=== PATIENT | female | born 1980 | race Hispanic/Latino ===

== ENCOUNTER 2019-04-30 16:09 | Outpatient (CLI) | payer MEDICAID ==
[2019-04-30 17:14] LABS: Bilirubin,Urine NEG (Negative); Blood,Urine NEG (Negative); Color,Urine Yellow (Yellow); Mucus,Urine FEW /HPF; Protein,Urine <15 mg/dL mg/dL (Negative); Urobilinogen,Urine < 2.0 mg/dL (<2.0)
[2019-04-30 17:20] VITALS: BP 125/74
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
== END 2019-04-30 19:09 | disposition home or self-care (01) ==
LOC: TRG 16:09
PROVIDERS: ATTEND Obstetrics & Gynecology
DX: O47.02 False labor before 37 completed weeks of gestation, second trimester (principal); Z3A.27 27 weeks gestation of pregnancy
CPT/HCPCS: 59025; 76815; 76819; 81001

== ENCOUNTER 2019-07-21 12:32 | Inpatient (IN) | payer MEDICAID ==
[2019-07-21 13:23] LABS: Hematocrit 38.4 % (30.3-42.9); Hemoglobin 13.1 gm/dl (10.1-14.3); Mean Corpuscular HGB Conc 34 % (30-34); Mean Corpuscular Volume 86 fl (79-97); Platelet Count 303 K/mm3 (140-440); Red Blood Count 4.45 M/mm3 (3.65-5.03); Red Cell Distribution Width 14.1 % (13.2-15.2)
[2019-07-21 14:01] LABS: Bacteria,Urine 1+ /HPF (Negative); Bilirubin,Urine NEG (Negative); Blood,Urine NEG (Negative); Color,Urine Yellow (Yellow); Mucus,Urine FEW /HPF; Urobilinogen,Urine < 2.0 mg/dL (<2.0)
[2019-07-21 14:03] LABS: Alanine Aminotransferase 8 units/L (7-56); Uric Acid 7.5 mg/dL (3.5-7.6)
[2019-07-21] MEDS ORDERED: REGLAN IV ONE ×2 (14:47→14:53)
[2019-07-21] MEDS ORDERED: PEPCID IV ONE ×2 (14:47→14:53)
--- NOTE | 2019-07-21 14:50 | Ultrasound Report ---
ULTRASOUND BIOPHYSICAL PROFILE ULTRASOUND OB LIMITED INDICATION: IVANA, BPP, well-being TECHNIQUE: Transabdominal ultrasound imaging. COMPARISON: None FINDINGS: breathing movement = 2 Gross body movement = 2 tone = 2 Qualitative amniotic fluid volume = 2 Total biophysical score = 8/8 Amniotic fluid index is 12.4 cm. Presentation is cephalic. heart rate is 139 beats per minute. IMPRESSION: biophysical profile equals 8/8. Signer Name: Ortiz Flores Jr, MD Signed: 07/21/2019 2:45 PM Workstation Name: [id number]
[2019-07-21] MEDS ORDERED: BICITRA PO ONE (14:53)
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
[2019-07-21] MEDS ORDERED: PITOCin/NS 20 UNIT/1000ML DRIP 20 UNITS/1,000 ML BAG IV SCH ×3 (15:00→21:39)
[2019-07-21] MEDS ORDERED: ANCEF/STERILE WATER 2 GM/20 ML 2 GM/20 ML SYRINGE IV NR (15:00)
[2019-07-21] MEDS ORDERED: ceFAZolin 3 GM in NACL 0.9% 100 ML IV NR (15:00)
[2019-07-21] MEDS ORDERED: LACTATED RINGERS 1,000 ML IV SCH ×2 (15:00)
--- NOTE | 2019-07-21 15:17 | Anesthesia Consultation ---
Anesthesia Consult and Med Hx Date of service: 07/21/19 - Airway Anesthetic Teeth Evaluation: Chipped ROM Head & Neck: Adequate Mental/Hyoid Distance: Adequate Mallampati Class: Class II Intubation Access Assessment: Probably Good - Pulmonary Exam CTA: Yes - Cardiac Exam Cardiac Exam: RRR - Pre-Operative Health Status ASA Pre-Surgery Classification: ASA3 Proposed Anesthetic Plan: Spinal - Pulmonary Hx Smoking: No (Quit 11/2018) Hx Asthma: No - Cardiovascular System Hx Hypertension: Yes - Central Nervous System Hx Seizures: No Hx Psychiatric Problems: No - Endocrine Hx Renal Disease: No Hx Hypothyroidism: No Hx Hyperthyroidism: No - Hematic Hx Anemia: No Hx Sickle Cell Disease: No - Other Systems Hx Alcohol Use: No Hx Obesity: Yes
--- NOTE | 2019-07-21 15:17 | Anesthesia Day of Surgery ---
Anesthesia Day of Surgery - Day of Surgery Patient Examined: Yes Patient H&P Reviewed: Yes Patient is NPO: Yes
[2019-07-21] MEDS ORDERED: BICITRA PO SCH (15:47)
[2019-07-21 16:52] LABS: Hematocrit 36.2 % (30.3-42.9); Mean Corpuscular HGB Conc 33 % (30-34); Mean Corpuscular Volume 88 fl (79-97); Red Cell Distribution Width 14.5 % (13.2-15.2)
[2019-07-21 16:56] LABS: Platelet Count 280 K/mm3 (140-440)
[2019-07-21] MEDS ORDERED: ANCEF/STERILE WATER 2 GM/20 ML IV ONE (17:05)
[2019-07-21] MEDS ORDERED: NACL 0.9% 500 ML 500 ML ONE (17:45)
[2019-07-21] MEDS ORDERED: MARCAINE 0.5% INFILTRATI ONE (17:45)
[2019-07-21] MEDS ORDERED: LEVOPHED IV ONE (17:45)
[2019-07-21] MEDS ORDERED: ZOFRAN ONE (17:45)
[2019-07-21] MEDS ORDERED: DEXMEDETOMIDINE IV ONE (17:45)
--- NOTE | 2019-07-21 18:25 | Procedure Note ---
OB Delivery Note - Delivery Date of Delivery: 07/21/19 Surgeon: EVERARDO CLINTON Estimated blood loss: other (500 mL) - Section Preop diagnosis: repeat Postop diagnosis: same section procedure: section, repeat low transverse Disposition: PACU Complications: none Narrative: Please see operative report. - A at 1 minute: 8 at 5 minutes: 9 Infant Gender: Male (3461g (7lb 10 oz) @ 1747 pm)
--- NOTE | 2019-07-21 18:26 | Operative Report ---
Operative Report Operative Report: Date of procedure: July 21, 2019 Preoperative diagnosis: 1) IUP at 38w6d 2)Gestational HTN 3) Morbid Obesity 4) Previous x 1 5) Advanced Maternal Age Postoperative diagnosis: Same Procedure: Repeat low transverse section Surgeon: Veena Adair MD Anesthesia: Regional Findings: 1) Viable male , Apgars 8 and 9, weight 3461 g, (7 lb 10 oz) in cephalic presentation. Meconium stained amniotic fluid 2) Normal-appearing uterus ovaries and tubes Estimated blood loss: 500 mL IV fluids:1000 mL Urine output: 100 mL, clear at the end of the procedure Drains: Perez to gravity Specimens: Placenta to pathology Complications: None.Counts correct x 3 Disposition: Stable to PACU Indication for procedure: Pt is a 39 year old at 38w6d who presents with elevated blood pressures 140-150/90s and a h/o prior . She was scheduled for repeat section tomorrow. Operation in detail: After the risks, benefits, alternatives and complications were explained to the patient she gave informed consent for the procedure. She was subsequently taken to the operating room where regional anesthesia was noted to be adequate. She was subsequently placed in the dorsal supine position with leftward tilt and prepped and draped in a normal sterile fashion. heart tones were noted prior to incision. A timeout was performed. A Pfannenstiel skin incision was made with the knife and carried down to the layer of the fascia with the Bovie. The fascia was incised in the midline and the fascial incision was extended bilaterally with the Mart scissors. The fascial incision was then stretched. The rectus muscles were then in the midline. The peritoneum was then entered bluntly. The peritoneal incision was extended with good visualization of the bladder. The peritoneal incision was then stretched. An Jatin retractor was then placed. The bladder blade was placed. The vesicouterine peritoneum was grasped with smooth pickups and incised with Metzenbaum scissors. Metzenbaum scissors were used to extend the incision bilaterally. The bladder flap was then created digitally and the bladder blade was replaced. A transverse incision was made in the lower uterine segment with a knife and extended bilaterally with the bandage scissors. Amniotomy was performed with Allis clamp with egress of meconium stained amniotic fluid. The head was delivered without difficulty followed by shoulders and body. was bulb suctioned at delivery. The cord was clamped and cut and the was handed to NICU staff in attendance. Cord blood was collected. The placenta was then delivered manually. The uterus was then exteriorized and cleared of all clots and debris. The hysterotomy was then reapproximated with 0 Vicryl in a running locked fashion. A second layer of the same suture was used in imbricating fashion. The hys terotomy was inspected and hemostasis was noted. The gutters were irrigated and cleared of all clots and debris. The hysterotomy was again inspected and noted to be hemostatic. Tissel was placed over the hysterotomy. Interceed was placed on the anterior surface of the uterus. The peritoneum was reapproximated with 2-0 Vicryl in a running fashion. The fascia was reapproximated with 0 PDS in a running fashion. The subcutaneous tissue was reapproximated with 2-0 Vicryl in a running fashion. The skin was reapproximated with jeimy. The incision was then covered with a pressure dressing. The procedure was then ended. The patient tolerated the procedure well and was taken to the PACU in stable condition. All instrument, lap, and needle counts were correct 3.
[2019-07-21] MEDS ORDERED: NALOXONE IV PRN ×2 (18:35→21:39)
[2019-07-21] MEDS ORDERED: PHENERGAN PR PRN (18:35)
[2019-07-21] MEDS ORDERED: ZOFRAN IV PRN ×2 (18:35→21:39)
[2019-07-21] MEDS ORDERED: PHENERGAN PO PRN (18:35)
--- NOTE | 2019-07-21 18:35 | Post Anesthesia Evaluation ---
- Post Anesthesia Evaluation Patient Participated: Yes Airway Patent: Yes Stable Respiratory Function: Yes Nausea/Vomiting: No Temp > 96.8F: Yes Pain Manageable: Yes Adequeate Hydration: Yes Anesthesia Complications: No Block Receding Appropriately: Yes
[2019-07-21] MEDS ORDERED: NalbUPHINE IV PRN (18:36)
[2019-07-21] MEDS ORDERED: IBUPROFEN PO SCH (19:00)
[2019-07-21] MEDS ORDERED: TYLENOL PO SCH (19:00)
[2019-07-21] MEDS: MORPHINE IV PRN (19:49)
[2019-07-21] MEDS ORDERED: SODIUM CHLORIDE FLUSH SYRINGE 10 ML IV NR (21:39)
[2019-07-21] MEDS ORDERED: TUCKS PAD TP PRN (21:39)
[2019-07-21] MEDS ORDERED: LANSINOH TP PRN (21:39)
[2019-07-21] MEDS ORDERED: MORPHINE IV PRN (21:39)
[2019-07-21] MEDS ORDERED: MILK OF MAGNESIA PO PRN (21:39)
[2019-07-21] MEDS ORDERED: MYLICON PO PRN (21:39)
[2019-07-21] MEDS: TORADOL IV SCH (22:40)
[2019-07-22] MEDS: MORPHINE IV PRN ×3 (02:11→13:28)
[2019-07-22] MEDS ORDERED: TYLENOL PO SCH (04:00)
[2019-07-22] MEDS: TYLENOL PO SCH ×4 (04:31→22:43)
[2019-07-22] MEDS ORDERED: D5LR 1,000 ML IV SCH (05:00)
[2019-07-22] MEDS: TORADOL IV SCH ×3 (05:13→17:11)
[2019-07-22] MEDS ORDERED: M-M-R II VACCINE SUB-Q ONE (06:00)
[2019-07-22] MEDS ORDERED: BOOSTRIX IM ONE (06:00)
--- NOTE | 2019-07-22 08:49 | Progress Note ---
Assessment and Plan A/P POD1 s/p reepat csec routine PP orders Urine yeast _ added diflucan Subjective - Subjective Date of service: 07/22/19 Principal diagnosis: s/p repeat csec. gestational HTN Patient reports: appetite normal, voiding normally, pain well controlled, flatus, ambulating normally Gregory: doing well Objective - Vital Signs Latest vital signs: Vital Signs Temp Pulse Resp BP BP Pulse Ox 07/22/19 06:08 98.2 F 86 20 123/67 96 07/22/19 04:31 18 07/22/19 01:58 98.0 F 94 H 20 131/76 93 07/21/19 20:00 20 95/44 97 07/21/19 19:49 15 07/21/19 19:30 97.9 F 85 18 91/50 97 07/21/19 19:15 84 17 87/39 96 07/21/19 19:00 82 23 100/44 96 07/21/19 18:45 85 16 82/35 97 07/21/19 18:40 82 18 91/37 97 07/21/19 18:35 82 18 90/42 97 07/21/19 18:30 97.4 F L 78 18 92/42 97 07/21/19 16:45 98 H 148/66 07/21/19 16:15 103 H 146/69 07/21/19 16:00 90 147/71 07/21/19 15:45 103 H 152/72 07/21/19 15:30 91 H 140/75 07/21/19 14:14 100 H 143/81 07/21/19 13:57 93 H 158/91 07/21/19 13:42 96 H 157/78 07/21/19 13:27 95 H 155/79 07/21/19 12:57 109 H 146/77 07/21/19 12:54 98.0 F 109 H 18 146/77 07/21/19 12:51 100 H 179/92 Intake and Output 07/21/19 07/22/19 07/22/19 23:59 07:59 15:59 Intake Total 1600 240 Output Total 150 600 Balance 1450 -360 Intake: IV 1600 Oral 240 Output: Urine 150 600 Indwelling Catheter 600 Other: Total, Intake Amount 240 Total, Output Amount 600 Estimated Blood Loss 500 - Exam Breasts: Present: normal Cardiovascular: Present: Regular rate, Normal S1 Lungs: Present: Clear to auscultation, Normal air movement Abdomen: Present: normal appearance, soft, normal bowel sounds. Absent: distention, tenderness, guarding Vulva: both: normal Uterus: Present: normal, firm Extremities: Present: normal Deep Tendon Reflex Grade: Normal +2 Incision: Present: normal, dry, intact - Labs Labs: Abnormal lab results 07/21/19 07/21/19 07/21/19 Range/Units 13:14 13:15 13:15 WBC 11.3 H (4.5-11.0) K/mm3 Creatinine 0.5 L (0.7-1.2) mg/dL U Epithel Cells (Auto) 21.0 H (0-13.0) /HPF 07/21/19 Range/Units 16:37 WBC 12.5 H (4.5-11.0) K/mm3 Creatinine (0.7-1.2) mg/dL U Epithel Cells (Auto) (0-13.0) /HPF
[2019-07-22 08:54] LABS: Hematocrit 33.3 % (30.3-42.9); Hemoglobin 11.2 gm/dl (10.1-14.3)
[2019-07-22] MEDS: ANCEF/NS 1 GM/50 ML 1 GM/50 ML BAG IV SCH ×2 (08:59)
[2019-07-22] MEDS ORDERED: DIFLUCAN PO NR (09:30)
[2019-07-22 09:31] LABS: Basophils % (Auto) 0.4 % (0.0-1.8); Eosinophils # (Auto) 0.1 K/mm3 (0.0-0.4); Eosinophils % (Auto) 0.7 % (0.0-4.3); Hematocrit 33.7 % (30.3-42.9); Hemoglobin 11.2 gm/dl (10.1-14.3); Lymphocytes # (Auto) 1.7 K/mm3 (1.2-5.4); Lymphocytes % (Auto) 17.5 % (13.4-35.0); Mean Corpuscular HGB Conc 33 % (30-34); Mean Corpuscular Volume 89 fl (79-97); Monocytes # (Auto) 0.5 K/mm3 (0.0-0.8); Monocytes % (Auto) 5.6 % (0.0-7.3); Platelet Count 245 K/mm3 (140-440); Red Cell Distribution Width 14.3 % (13.2-15.2)
[2019-07-22] MEDS: PERCOCET 5/325 PO PRN ×2 (17:45→21:55)
[2019-07-23] MEDS: IBUPROFEN PO PRN ×4 (00:11→17:04)
[2019-07-23] MEDS: PERCOCET 5/325 PO PRN ×3 (03:52→22:15)
[2019-07-23] MEDS: TYLENOL PO SCH ×2 (11:09→17:04)
--- NOTE | 2019-07-23 12:08 | Progress Note ---
Assessment and Plan POD2 s/p repeat Gestational HTN All labs normal Needs abdominal binder Anticipate discharge to home tomorrow Subjective - Subjective Date of service: 07/23/19 Principal diagnosis: s/p repeat csec. gestational HTN Interval history: Pt is POD2 s/p repeat and gestational HTN. Patient reports: appetite normal, voiding normally, pain well controlled, flatus, ambulating normally : doing well, bottle feeding Objective - Vital Signs Latest vital signs: Vital Signs Temp Pulse Resp BP BP Pulse Ox 07/23/19 08:12 97.5 F L 87 18 144/74 07/23/19 05:39 20 07/23/19 03:52 20 07/23/19 00:58 98.2 F 91 H 20 144/71 98 07/23/19 00:11 20 07/22/19 21:55 20 07/22/19 17:19 97.9 F 81 22 149/75 98 Intake and Output 07/22/19 07/23/19 07/23/19 23:59 07:59 15:59 Intake Total 240 480 Output Total 800 Balance -560 480 Intake: Oral 240 480 Output: Urine 800 Indwelling Catheter 800 Other: Total, Intake Amount 240 480 Total, Output Amount 800 # Voids Indwelling Catheter 1 - Exam Lungs: Present: Normal air movement Abdomen: Present: normal appearance, tenderness Uterus: Present: normal, firm, fundal height below umbilicus Extremities: Present: normal Incision: Present: dressed
[2019-07-24] MEDS: IBUPROFEN PO PRN (00:03)
[2019-07-24] MEDS: PERCOCET 5/325 PO PRN ×2 (03:48→10:17)
--- NOTE | 2019-07-24 08:26 | Progress Note ---
Assessment and Plan POD3 s/p repeat Gestational HTN All labs normal Discharge to home today Subjective - Subjective Date of service: 07/24/19 Principal diagnosis: s/p repeat csec. gestational HTN Interval history: Pt is POD3 s/p repeat and gestational HTN. Patient reports: appetite normal, voiding normally, pain well controlled, flatus, ambulating normally : doing well, bottle feeding Objective - Vital Signs Latest vital signs: Vital Signs Temp Pulse Resp BP Pulse Ox 07/24/19 03:48 20 07/24/19 02:55 98.1 F 96 H 20 128/63 98 07/24/19 00:03 18 07/23/19 22:15 20 07/23/19 17:41 98.0 F 99 H 18 134/66 Intake and Output 07/23/19 07/24/19 07/24/19 23:59 07:59 15:59 Intake Total 480 240 Balance 480 240 Intake: Oral 480 240 Other: Total, Intake Amount 480 240 - Exam Lungs: Present: Normal air movement Abdomen: Present: normal appearance, soft Uterus: Present: normal, firm, fundal height below umbilicus Extremities: Present: edema Incision: Present: normal, dry, intact
--- NOTE | 2019-07-24 08:29 | Discharge Summary ---
Providers - Providers Date of Admission: 07/21/19 15:32 Date of discharge: 07/24/19 Attending physician: EVERARDO CLINTON Primary care physician: EVERARDO CLINTON Hospitalization Reason for admission: section (for gestational hypertension) Delivery: Procedure: repeat low transverse Incision: normal, dry, intact Other procedures: none complications: none Discharge diagnosis: IUP at term delivered baby: male Hospital course: Pt was admitted for gestational hypertension and progressed to repeat at 38w6d. Her course was uneventful, and she met discharge criteria on POD3. Condition at discharge: Good Disposition: DC-01 TO HOME OR SELFCARE Plan - Discharge Medications Prescriptions: Ibuprofen [Motrin] 800 mg PO Q8HR PRN #60 tablet PRN Reason: Pain, Mild (1-3) oxyCODONE /ACETAMINOPHEN [Percocet 5/325] 1 tab PO Q6HR PRN #30 tablet PRN Reason: Pain - Provider Discharge Summary Activity: routine, no sex for 6 weeks, no heavy lifting 4 weeks, no strenuous exercise Diet: routine Instructions: routine Additional instructions: [] Smoking cessation referral if applicable(refer to patient education folder for contact #) [] Refer to [facility] Booklet Call your doctor immediately for: * Fever > 100.5 * Heavy vaginal bleeding ( >1 pad per hour) * Severe persistent headache * Shortness of breath * Reddened, hot, painful area to leg or breast * Drainage or odor from incision. * Keep incision clean and dry at all times and follow doctor's instructions regarding bathing/showering - Follow up plan Follow up: LEEANN ADAIR MD [Staff Physician] - 7 Days (Please call to schedule appt with Dr. Adair.)
[2019-07-24 14:54] VITALS: BP 130/60
== END 2019-07-24 14:20 | disposition home or self-care (01) | DRG 766 ==
LOC: TRG 12:32 → APU 15:32 → OB 20:59
PROVIDERS: ADMIT Obstetrics & Gynecology; ATTEND Obstetrics & Gynecology
PROC: 10D00Z1 Extraction of Products of Conception, Low, Open Approach (ICD-10-PCS; principal; 2019-07-21)
PROC: 3E0234Z Introduction of Serum, Toxoid and Vaccine into Muscle, Percutaneous Approach (ICD-10-PCS; 2019-07-22)
DX: O34.211 Maternal care for low transverse scar from previous cesarean delivery (principal); O13.4 Gestational [pregnancy-induced] hypertension without significant proteinuria, complicating childbirth; O99.214 Obesity complicating childbirth; E66.01 Morbid (severe) obesity due to excess calories; O77.0 Labor and delivery complicated by meconium in amniotic fluid; Z3A.38 38 weeks gestation of pregnancy; Z37.0 Single live birth; Z71.3 Dietary counseling and surveillance; Z23 Encounter for immunization; Z82.49 Family history of ischemic heart disease and other diseases of the circulatory system
CPT/HCPCS: 36415; 76815; 76819; 81001; 82565; 82962; 83615; 84450; 84460; 84550; 85014; 85018; 85025; 85027; 86592; 86850; 86900; 86901; 88307; 90471; 90715; G0378; J0690; J1885; J2270; J2405; J2590; J2765; J3490; J7040; J7120; J7121

== ENCOUNTER 2020-09-13 08:40 | Inpatient (IN) | payer MEDICAID ==
[2020-09-13] MEDS ORDERED: OXYTOCIN DRIP 30,000 MILLIUNITS/500 ML BAG IV ONE (09:20)
[2020-09-13] MEDS ORDERED: LACTATED RINGERS 1,000 ML ONE (09:20)
[2020-09-13] MEDS ORDERED: METOCLOPRAMIDE 10 MG/2 ML INJ ONE (09:20)
[2020-09-13] MEDS ORDERED: FAMOTIDINE 20 MG/2 ML INJ IV ONE ×2 (09:20→17:43)
[2020-09-13] MEDS ORDERED: BICITRA ORAL LIQD 30ML ONE ×2 (09:20→09:21)
[2020-09-13] MEDS ORDERED: ceFAZolin/Water 2 GM/20 ML 2 GM/20 ML SYRINGE IV ONE (09:21)
[2020-09-13] MEDS ORDERED: TERBUTALINE 1 MG/1 ML INJ ONE (09:23)
--- NOTE | 2020-09-13 09:35 | History and Physical Report ---
History of Present Illness Date of examination: 09/13/20 ("brown fluid coming out of my vagina.") Date of admission: 09/13/2020 Chief complaint: Cxts, limited PNC, @ 39 wks History of present illness: Pt presented to triage with c/o ctxs and brown liquid coming out of her vagina. States that she has been getting care in [facility]. Does not remember name of OBGYN or practice name. States was given EDC 09/18/2020 based off her LMP which makes her 39.2 wks gestation. States that she never received an ultrasound during and her LMP is actually unknown. " My last period was before I found out I was ." Per pt she has not been seen by this OBGYN for the last 2 months. She is a with X 2 in 2004 and 2018 for unknown causes. She has also had an appendectomy and cholecystectomy. Remote history of cHTN 3-4 years ago and was last on medication 3-4 years ago. Denies any other medical/surgical, OB, [employer] history. Denies drug use. Past History Past Medical History: hypertension (Possibly cHTN. On meds last 3-4 years ago. ) Past Surgical History: appendectomy, cholecystectomy, section (X 2) Family/Genetic History: none Social history: no significant social history - Obstetrical History Expected Date of Delivery: 09/18/20 Actual Gestation: 39 Week(s) 2 Day(s) : 3 Para: 2 Hx # Term Pregnancies: 2 Number of Pregnancies: 0 Spontaneous Abortions: 0 Induced : 0 Number of Living Children: 2 Medications and Allergies Allergies Allergy/AdvReac Type Severity Reaction Status Date / Time No Known Allergies Allergy Verified 04/30/19 16:30 Home Medications Medication Instructions Recorded Confirmed Last Taken Type Ibuprofen [Motrin] 800 mg PO Q8HR PRN #60 tablet 07/23/19 Unknown Rx oxyCODONE /ACETAMINOPHEN [Percocet 1 tab PO Q6HR PRN #30 tablet 07/23/19 Unknown Rx 5/325] Active Meds: Active Medications Carboprost Tromethamine (Carboprost Tromethamine 250 Mcg/1 Ml Inj) 250 mcg IM ONCE PRN PRN Reason: Uterine Bleeding Citric Acid/Sodium Citrate (Bicitra Oral Liqd 30ml) 30 ml PO ONCE ONE Stop: 09/13/20 09:28 Famotidine (Famotidine 20 Mg/2 Ml Inj) 20 mg IV ONCE ONE Stop: 09/13/20 09:28 Lactated Ringer's (Lactated Ringers) 1,000 mls @ 2,250 mls/hr IV PREOP PHILYL Stop: 09/14/20 09:57 Oxytocin/Sodium Chloride (Pitocin/Ns 30 Unit/500ml) 30 units in 500 mls @ 0 mls/hr IV TITR PHILLY; Protocol Cefazolin Sodium (Ancef/Sterile Water 2 Gm/20 Ml) 2 gm in 20 mls @ 80 mls/hr IV PREOP NR; Protocol Lidocaine (Lidocaine (2%) 20 Mg/1 Ml Vial 20 Ml Mdv) 20 ml INFILTRATI ONCE ONE Stop: 09/13/20 09:28 Metoclopramide HCl (Metoclopramide 10 Mg/2 Ml Inj) 10 mg IV ONCE ONE Stop: 09/13/20 09:28 Terbutaline Sulfate (Terbutaline 1 Mg/1 Ml Inj) 0.25 mg SUB-Q ONCE PRN PRN Reason: Hyperstimulation/Hypertonicity Review of Systems All systems: negative - Vital Signs Vital signs: Vital Signs Pulse Pulse Ox 117 H 96 09/13/20 09:30 09/13/20 09:30 Temp Pulse Resp BP Pulse Ox 117 H 96 09/13/20 09:30 09/13/20 09:30 - Physical Exam Breasts: Positive: deferred Cardiovascular: Regular rate Lungs: Positive: Normal air movement Abdomen: Positive: normal appearance, soft Genitourinary (Female): Positive: normal external genitalia, normal perenium Vulva: both: normal Vagina: Positive: normal moisture. Negative: discharge Cervix: Negative: lesion, discharge Uterus: Positive: normal size, normal contour Adnexa: both: normal Anus/Rectum: Positive: normal perianal skin, heme negative. Negative: rectal mass, hemorrhoids Extremities: Positive: normal Deep Tendon Reflex Grade: Normal +2 - Obstetrical FHR: other (Twin gestation noted. No FHR X 2. Pt unaware that she was carrying twin gestation. ) Uterine Contraction Monitor Mode: Palpation (X 10 minutes) Cervical Dilatation: 7 ( head not felt, possible breech. Thick meconium noted on glove during exam. Foul smelling fluid noted. ) Cervical Effacement Percentage: 100 station: 0 Uterine Contraction Pattern: Irregular Uterine Tone Measurement Phase: Resting Uterine Contraction Intensity: Moderate Results Result Diagrams: 09/13/20 09:35 All other labs normal. GBS UNKNOWN. LABS DRAWN ON ADMISSION. UDS ORDERED. Assessment and Plan Pt 40 y.o. no care @ unknown gestation, IUFD with twins in breech presentation noted by ultrasound. Previous X 2. Dr. Bliss aware. Orders placed for and admission. Cervical exam /0. Antibiotics ordered d/t chorioamnionitis. - Patient Problems (1) No care in current Onset Date: ~09/13/20 Current Visit: Yes Status: Acute Plan to address problem: Will order case management to see patient before discharge. (2) with gestation of unknown duration Onset Date: ~09/13/20 Current Visit: Yes Status: Acute Plan to address problem: Pt states EDC of 09/18 based off LMP but states that she never had an ultrasound this and is of unknown LMP. Ultrasound ordered. (3) Previous section Onset Date: ~09/13/20 Current Visit: Yes Status: Acute Plan to address problem: Previous X 2. Consents signed. (4) Twin gestation with unknown number of placentas and amniotic sacs Onset Date: ~09/13/20 Current Visit: Yes Status: Acute Qualifiers: Trimester: third trimester Qualified Code(s): O30.003 - Twin , unspecified number of placenta and unspecified number of amniotic sacs, third trimester Plan to address problem: Ultrasound at bedside stat for position. Revealed twins. Pt states that she was unaware of twin gestation. (5) IUFD at 20 weeks or more of gestation Onset Date: ~09/13/20 Current Visit: Yes Status: Acute Plan to address problem: Twin gestation with no FHR via ultrasound. Pt states that she would like to proceed with . (6) Chorioamnionitis Onset Date: ~09/13/20 Current Visit: Yes Status: Acute Qualifiers: Trimester: unspecified trimester Plan to address problem: Pt with heart rate of 110's, foul smelling amniotic fluid, and a WBC of 19.7. Consulted with Dr. Bliss. Will order antibiotics at this time.
--- NOTE | 2020-09-13 09:41 | Anesthesia Day of Surgery ---
Anesthesia Day of Surgery - Day of Surgery Patient Examined: Yes Patient H&P Reviewed: Yes Patient is NPO: Yes Beta Blockers: No Cardiac Clearance: No Pulmonary Clearance: No Sachin's Test: N/A
--- NOTE | 2020-09-13 09:45 | Anesthesia Consultation ---
Anesthesia Consult and Med Hx Date of service: 09/13/20 - Airway Anesthetic Teeth Evaluation: Poor ROM Head & Neck: Adequate Mental/Hyoid Distance: Adequate Mallampati Class: Class III Intubation Access Assessment: Possibly Difficult - Pulmonary Exam CTA: Yes - Cardiac Exam Cardiac Exam: RRR - Pre-Operative Health Status ASA Pre-Surgery Classification: ASA3, Emergency Proposed Anesthetic Plan: Spinal - Pre-Anesthesia Comment Pre-Anesthesia Comments: kusum richardson csectionx2 - Pulmonary Hx Smoking: Yes (Quit 11/2018) Hx Asthma: No Hx Respiratory Symptoms: No SOB: No COPD: No Home Oxygen Therapy: No Hx Pneumonia: No Hx Sleep Apnea: No - Cardiovascular System Hx Hypertension: Yes Hx Coronary Artery Disease: No Hx Heart Attack/AMI: No Hx Angina: No Hx Percutaneous Transluminal Coronary Angioplasty (PTCA): No Hx Cardia Arrhythmia: No Hx Pacemaker: No Hx Internal Defibrillator: No Hx Valvular Heart Disease: No Hx Heart Murmur: No - Central Nervous System Hx Neuromuscular Disorder: No Hx Seizures: No CVA: No Hx Back Pain: Yes Hx Psychiatric Problems: No - Gastrointestinal Hx Ulcer: No Hx Gastroesophageal Reflux Disease: Yes - Endocrine Hx Renal Disease: No Hx End Stage Renal Disease: No Hx Cirrhosis: No Hx Liver Disease: No Hx Insulin Dependent Diabetes: No Hx Non-Insulin Dependent Diabetes: No Hx Thyroid Disease: No Hx Hypothyroidism: No Hx Hyperthyroidism: No - Hematic Hx Anemia: No Hx Sickle Cell Disease: No - Other Systems Hx Alcohol Use: No Hx Substance Use: No Hx Cancer: No Hx Obesity: Yes
[2020-09-13] MEDS ORDERED: OXYTOCIN DRIP 30 UNITS/500 ML BAG IV SCH ×3 (10:00→10:30)
[2020-09-13] MEDS ORDERED: ePHEDrine SULFATE 50 MG/1 ML INJ IV PRN (10:00)
[2020-09-13] MEDS ORDERED: ceFAZolin/Water 2 GM/20 ML 2 GM/20 ML SYRINGE IV NR (10:00)
[2020-09-13] MEDS ORDERED: HYDROmorphone 1 MG/1 ML INJ IV PRN (10:00)
[2020-09-13] MEDS ORDERED: METOCLOPRAMIDE 10 MG/2 ML INJ IV SCH (10:00)
[2020-09-13] MEDS ORDERED: FAMOTIDINE 20 MG/2 ML INJ IV SCH (10:00)
[2020-09-13] MEDS ORDERED: BICITRA ORAL LIQD 30ML PO SCH (10:00)
[2020-09-13] MEDS ORDERED: CARBOPROST TROMETHAMINE 250 MCG/1 ML INJ IM PRN (10:00)
[2020-09-13] MEDS ORDERED: LIDOCAINE (2%) 20 MG/1 ML VIAL 20 ML MDV INFILTRATI SCH (10:00)
[2020-09-13 10:07] LABS: Hemoglobin 16.2 gm/dl (10.1-14.3); Mean Corpuscular HGB Conc 35 % (30-34); Mean Corpuscular Volume 84 fl (79-97); Platelet Count 267 K/mm3 (140-440); Red Blood Count 5.48 M/mm3 (3.65-5.03); Red Cell Distribution Width 15.1 % (13.2-15.2)
[2020-09-13 10:18] LABS: Benzodiazepines Screen,Urine Negative; Cocaine Screen,Urine Negative; Methadone Screen,Urine Negative; Opiate Screen,Urine Negative
--- NOTE | 2020-09-13 10:24 | Ultrasound Report ---
US OB limited INDICATION / CLINICAL INFORMATION: WELL BEING. COMPARISON: None FINDINGS: Twin intrauterine . No heart rate is demonstrated in either fetus. IMPRESSION: 1. 20 . demise of both. Signer Name: Tawanda Boudreaux MD Signed: 09/13/2020 10:19 AM Workstation Name: [id number][id number]
[2020-09-13] MEDS ORDERED: METHYLERGONOVINE MALEATE 0.2 MG/ML VIAL IM PRN (10:30)
[2020-09-13] MEDS: LACTATED RINGERS 1,000 ML IV SCH ×4 (10:30→22:01)
[2020-09-13] MEDS ORDERED: TERBUTALINE 1 MG/1 ML INJ SUB-Q PRN (10:30)
[2020-09-13] MEDS ORDERED: MINERAL OIL 30 ML ORAL LIQD PO PRN (10:30)
[2020-09-13] MEDS ORDERED: NALOXONE 0.4 MG/1 ML INJ IV PRN ×2 (10:30→19:48)
[2020-09-13] MEDS ORDERED: ONDANSETRON 4 MG/2 ML INJ IV PRN (10:30)
[2020-09-13] MEDS ORDERED: OXYTOCIN 10 UNIT/1 ML INJ IM PRN (10:30)
[2020-09-13 10:34] LABS: Amphetamine Screen,Urine PRESUMPTIVE POSITIVE; Cannabinoid Screen,Urine PRESUMPTIVE POSITIVE
[2020-09-13] MEDS ORDERED: fentaNYL 100 MCG/2 ML INJ IV NR (11:22)
[2020-09-13] MEDS ORDERED: fentaNYL 100 MCG/2 ML INJ IV SCH (12:30)
[2020-09-13 12:59] LABS: Band Neutrophils # (Manual) 2.2 K/mm3; Platelet Estimate Consistent w Auto; RBC Morphology Normal; Total Cells Counted 100
[2020-09-13] MEDS: AMPICILLIN/NS 2 GM/100 ML 2 GM/100 ML BAG IV SCH ×2 (13:22→23:54)
[2020-09-13] MEDS ORDERED: TERBUTALINE 1 MG/1 ML INJ SUB-Q ONE (13:27)
[2020-09-13 15:05] LABS: Hepatitis C Virus Antibody Non-Reactive (NonReactive)
[2020-09-13] MEDS ORDERED: fentaNYL 100 MCG/2 ML INJ IV ONE (16:19)
--- NOTE | 2020-09-13 17:24 | Event Note ---
Date: 09/13/20 Spoke with pt and advised of current exam and parts in the vagina. She does not desire a ZANA at this time. She desires to have repeat c/s. Again it was discussed with pt risk of bleeding, infection, hysterectomy as a life saving measure, need for transfusion. She expressed understanding and states she would still desire a c/s.
[2020-09-13] MEDS: GENTAMICIN/NS 120MG/100ML 120 MG/100 ML BAG IV SCH (17:30)
[2020-09-13] MEDS ORDERED: BICITRA ORAL LIQD 30ML PO ONE (17:43)
[2020-09-13] MEDS ORDERED: METOCLOPRAMIDE 10 MG/2 ML INJ IV ONE (17:43)
[2020-09-13] MEDS ORDERED: KETOROLAC 30 MG/1 ML INJ ONE (18:32)
[2020-09-13] MEDS ORDERED: ONDANSETRON 4 MG/2 ML INJ ONE (18:32)
[2020-09-13] MEDS ORDERED: SODIUM CHLORIDE 0.9% IRR 1,500 ML BOTTLE IR ONE (18:42)
[2020-09-13] MEDS ORDERED: WATER FOR IRRIG STERILE 1,500 ML BOTTLE IR ONE (18:42)
[2020-09-13] MEDS ORDERED: OXYTOCIN 10 UNIT/1 ML INJ ONE (18:51)
[2020-09-13] MEDS ORDERED: BUPIVACAINE/PF (0.5%) 5 MG/1 ML 30 ML VIAL INFILTRATI ONE (19:11)
[2020-09-13] MEDS ORDERED: BUPIVACAINE /DEX-WATER 0.75% (2 ML) AMPULE INFILTRATI ONE (19:11)
--- NOTE | 2020-09-13 19:44 | Operative Report ---
Operative Report Operative Report: Date of procedure: 09/13/2020 Pre-operative diagnosis: Intrauterine approximately 39 weeks gestation Twin gestation Intrauterine demise for both babies No care Morbid obesity Previous section x2 Declined trial of labor Thick meconium UDS positive for methamphetamine Breech presentation for twin A Maternal tachycardia Post-operative diagnosis: Same Procedure name(s): Repeat low transverse section via Pfannenstiel skin incision Surgeon: Dr. Bliss Cremator: BROOKE Anesthesia: Epidural EBL: 700 cc Urine output: 200 cc of clear urine out at end of procedure Fluids: 900 mL Findings: Thick yellow meconium noted upon entry into the uterus Twin A: male weight 5 pounds 11 ounces no Apgars given Twin B: female infant weight 4 pounds 5 ounces no Apgars given Grossly normal uterus Foul-smelling meconium Minimal bleeding of the uterus during the procedure Grossly normal fallopian tubes and ovaries bilaterally Indications: Patient presented to triage complaining of having stool coming from the vagina. Upon evaluation patient was noted to have no heart tones x2. Patient was not aware she had a twin gestation. Patient had not had any care. Patient was noted to be approximately 7 cm dilated. Patient was given the option of a trial of labor versus repeat section for hysterotomy of intrauterine demise x2. Patient desired to have repeat section. Patient declined trial of labor. All risks benefits and alternatives were discussed with the patient. Consents were signed and placed on the chart. Procedure: Patient was taking to the operating room. Patient was then prepped and draped in sterile fashion after anesthesia was found to be adequate. A low transverse skin incision was made with the scalpel through previous incisional scar and carried down to the underlying layer of fascia with the Bovie. The fascia was then incised in the midline and this incision was extended bilaterally with the Bovie. The superior aspect of the fascia was grasped with Rufino clamps tented upward and dissected off of the anterior rectus muscles with the scalpel. In similar fashion the inferior aspect of the fascia was grasped with Rufino clamps tented upward and dissected off of the anterior rectus muscles. The rectus muscles were then sharply divided in the midline. The peritoneum was identified and entered into sharply. The bladder blade was placed. The Jatin retractor was placed. A lower transverse uterine incision was made with the scalpel and extended bilaterally with the blunt dissection. Entry into the uterus yielded thick particulate foul-smelling amniotic fluid. Twin A was delivered via breech extraction in normal fashion without difficulty. The infant's head was then delivered atraumatically. Twin A's cord was clamped and cut, and infant was placed in sterile bassinet. Twin B was then delivered via breech extraction in usual fashion without difficulty. Cord was clamped and cut and the infant was placed in sterile bassinet. The umbilical cord was clamped x2. The cord was cut. The infant was then placed in sterile bassinet. [The cord blood was collected]. The placenta was manually extracted in its entirety. The uterus was exteriorized and cleared of all clots and debris. The uterine incision was closed using 0 Vicryl in a running locking fashion. Several [id number] sutures were used along the uterine incision to secure excellent hemostasis. The posterior cul-de-sac was copiously irrigated. The uterus was returned to the abdomen. The gutters were also irrigated. The Jatin was removed from the abdomen. Interceed was placed along the uterine incision with excellent hemostasis noted. The anterior rectus muscles were reapproximated using 3-0 Vicryl. The anterior rectus fascia was reapproximated using 0 Vicryl in a running fashion. The subcuticular fat was reapproximated using 2-0 Vicryl in a running fashion. The skin was reapproximated with 4-0 Vicryl in a subcuticular stitch. The patient tolerated the procedure well. Sponge lap and needle counts were all correct x3. Patient was taken to the recovery room awake and in stable condition.
[2020-09-13] MEDS ORDERED: WITCH HAZEL/ GLYCERIN PAD TP PRN (19:48)
[2020-09-13] MEDS ORDERED: LANOLIN/ZINC/DIMETHICONE (LANSINOH) 7 GM TP PRN (19:48)
[2020-09-13] MEDS ORDERED: ACETAMINOPHEN 325 MG TAB PO PRN (19:48)
--- NOTE | 2020-09-13 19:58 | Progress Note ---
Spinal Anesthesia Block - Spinal Anesthesia Block Start Time: 18:19 Stop Time: 18:24 Performed by:: NANCY OAKES Procedure: Patient IDed, H&P reviewed, all questions and concerns were answered, and consent was signed. Timeout was performed at bedside. Patient in sitting position. Sterile prep and drape was performed. [3] ml of 1% lidocaine skin wheal at L[3]- L [4]. Needle introducer advanced. 25 gauge spinal needle advanced. Clear, free flowing CSF. negative blood, negative paresthesia. Spinal dose given. All needles removed. Patient tolerated procedure.
[2020-09-13] MEDS ORDERED: MAGNESIUM SULFATE 40GM/1000ML 40 GM/1,000 ML BAG IV SCH (20:00)
--- NOTE | 2020-09-13 20:02 | Progress Note ---
Subjective Date of service: 09/13/20 Principal diagnosis: Regional Anesthesia Block Interval history: Patient consented for TAP block for post surgical pain management. Patient identified, monitors placed, and time out performed. TAP identified bilaterally via ultrasound. Skin prepped bilaterally with [chlorhexidine] and [22g stimuplex] needle advanced to the TAP. [Marcaine 0.33% 35ml] injected under ultrasound guidance on the [left] side. [Marcaine 0.33% 35ml] injected under ultrasound guidance on the [right] side. Negative aspiration, signs of cardiac injection. Tolerated procedure well. Objective - Constitutional Vitals: Vital Signs - 12hr 09/13/20 09/13/20 09/13/20 09:30 09:35 09:40 Temperature Pulse Rate 117 H 126 H 118 H Respiratory Rate Blood Pressure Blood Pressure [Right] O2 Sat by Pulse 96 95 95 Oximetry 09/13/20 09/13/20 09/13/20 09:45 09:48 09:50 Temperature Pulse Rate 121 H 115 H 115 H Respiratory Rate Blood Pressure 137/97 Blood Pressure [Right] O2 Sat by Pulse 95 94 96 Oximetry 09/13/20 09/13/20 09/13/20 09:53 09:55 12:22 Temperature 98.0 F Pulse Rate 108 H 118 H Respiratory 20 Rate Blood Pressure 143/96 Blood Pressure 137/97 [Right] O2 Sat by Pulse 97 96 Oximetry 09/13/20 09/13/20 09/13/20 12:23 12:33 12:38 Temperature 98.0 F Pulse Rate 119 H 102 H Respiratory 20 Rate Blood Pressure Blood Pressure [Right] O2 Sat by Pulse 97 98 Oximetry 09/13/20 09/13/20 09/13/20 12:43 12:48 12:53 Temperature Pulse Rate 109 H 103 H 98 H Respiratory Rate Blood Pressure Blood Pressure [Right] O2 Sat by Pulse 98 97 98 Oximetry 09/13/20 09/13/20 09/13/20 12:58 13:03 13:05 Temperature Pulse Rate 100 H 101 H 96 H Respiratory Rate Blood Pressure 181/100 Blood Pressure [Right] O2 Sat by Pulse 100 100 Oximetry 09/13/20 09/13/20 09/13/20 13:08 13:13 13:18 Temperature Pulse Rate 111 H 96 H 103 H Respiratory Rate Blood Pressure Blood Pressure [Right] O2 Sat by Pulse 99 99 100 Oximetry 09/13/20 09/13/20 09/13/20 13:23 13:28 13:33 Temperature Pulse Rate 96 H 88 109 H Respiratory Rate Blood Pressure Blood Pressure [Right] O2 Sat by Pulse 100 100 100 Oximetry 09/13/20 09/13/20 09/13/20 13:34 13:38 13:43 Temperature Pulse Rate 111 H 104 H 100 H Respiratory Rate Blood Pressure 140/95 Blood Pressure [Right] O2 Sat by Pulse 100 100 Oximetry 09/13/20 09/13/20 09/13/20 13:48 13:53 13:58 Temperature Pulse Rate 102 H 111 H 99 H Respiratory Rate Blood Pressure Blood Pressure [Right] O2 Sat by Pulse 100 99 99 Oximetry 09/13/20 09/13/20 09/13/20 14:03 14:04 14:08 Temperature Pulse Rate 106 H 102 H 97 H Respiratory Rate Blood Pressure 143/88 Blood Pressure [Right] O2 Sat by Pulse 99 99 Oximetry 09/13/20 09/13/20 09/13/20 14:11 14:13 14:18 Temperature Pulse Rate 104 H 102 H 86 Respiratory Rate Blood Pressure Blood Pressure [Right] O2 Sat by Pulse 94 98 99 Oximetry 09/13/20 09/13/20 09/13/20 14:23 14:28 14:33 Temperature Pulse Rate 107 H 91 H 99 H Respiratory Rate Blood Pressure Blood Pressure [Right] O2 Sat by Pulse 99 98 100 Oximetry 09/13/20 09/13/20 09/13/20 14:34 14:38 14:43 Temperature Pulse Rate 101 H 79 94 H Respiratory Rate Blood Pressure 145/92 Blood Pressure [Right] O2 Sat by Pulse 100 99 Oximetry 09/13/20 09/13/20 09/13/20 14:48 14:51 14:53 Temperature Pulse Rate 102 H 70 105 H Respiratory Rate Blood Pressure Blood Pressure [Right] O2 Sat by Pulse 100 89 100 Oximetry 09/13/20 09/13/20 09/13/20 14:58 15:03 15:05 Temperature Pulse Rate 104 H 100 H 108 H Respiratory Rate Blood Pressure 175/84 Blood Pressure [Right] O2 Sat by Pulse 100 100 Oximetry 09/13/20 09/13/20 09/13/20 15:08 15:13 15:19 Temperature Pulse Rate 101 H 109 H 109 H Respiratory Rate Blood Pressure Blood Pressure [Right] O2 Sat by Pulse 100 100 99 Oximetry 09/13/20 09/13/20 09/13/20 15:24 15:29 15:34 Temperature Pulse Rate 116 H 106 H 94 H Respiratory Rate Blood Pressure Blood Pressure [Right] O2 Sat by Pulse 100 100 100 Oximetry 09/13/20 09/13/20 09/13/20 15:36 15:39 15:45 Temperature Pulse Rate 96 H 85 113 H Respiratory Rate Blood Pressure 184/82 Blood Pressure [Right] O2 Sat by Pulse 100 100 Oximetry 09/13/20 09/13/20 09/13/20 15:50 15:55 16:00 Temperature Pulse Rate 94 H 99 H 96 H Respiratory Rate Blood Pressure Blood Pressure [Right] O2 Sat by Pulse 100 100 100 Oximetry 09/13/20 09/13/20 09/13/20 16:05 16:06 16:10 Temperature Pulse Rate 106 H 107 H 104 H Respiratory Rate Blood Pressure 187/84 Blood Pressure [Right] O2 Sat by Pulse 99 99 Oximetry 09/13/20 09/13/20 09/13/20 16:15 16:20 16:25 Temperature Pulse Rate 116 H 115 H 122 H Respiratory Rate Blood Pressure Blood Pressure [Right] O2 Sat by Pulse 100 99 98 Oximetry 09/13/20 09/13/20 09/13/20 16:30 16:34 16:35 Temperature Pulse Rate 132 H 141 H 133 H Respiratory Rate Blood Pressure 145/87 Blood Pressure [Right] O2 Sat by Pulse 99 99 Oximetry 09/13/20 09/13/20 09/13/20 16:40 16:42 16:45 Temperature 101.8 F H Pulse Rate 137 H 118 H Respiratory 24 Rate Blood Pressure Blood Pressure [Right] O2 Sat by Pulse 99 98 Oximetry 09/13/20 09/13/20 09/13/20 16:50 16:55 17:00 Temperature Pulse Rate 112 H 112 H 122 H Respiratory Rate Blood Pressure Blood Pressure [Right] O2 Sat by Pulse 97 97 98 Oximetry 09/13/20 09/13/20 09/13/20 17:04 17:05 17:10 Temperature Pulse Rate 121 H 116 H 124 H Respiratory Rate Blood Pressure 149/80 Blood Pressure [Right] O2 Sat by Pulse 98 98 Oximetry 09/13/20 09/13/20 17:15 17:20 Temperature Pulse Rate 138 H 140 H Respiratory Rate Blood Pressure Blood Pressure [Right] O2 Sat by Pulse 97 97 Oximetry - Labs CBC & Chem 7: 09/13/20 09:35 Labs: Abnormal lab results 09/13/20 Range/Units 09:35 WBC 19.7 H (4.5-11.0) K/mm3 RBC 5.48 H (3.65-5.03) M/mm3 Hgb 16.2 H (10.1-14.3) gm/dl Hct 46.0 H (30.3-42.9) % MCHC 35 H (30-34) % Seg Neuts % (Manual) 77.0 H (40.0-70.0) % Lymphocytes % (Manual) 5.0 L (13.4-35.0) % Seg Neutrophils # Man 15.2 H (1.8-7.7) K/mm3 Lymphocytes # (Manual) 1.0 L (1.2-5.4) K/mm3 Monocytes # (Manual) 1.4 H (0.0-0.8) K/mm3
--- NOTE | 2020-09-13 20:02 | Post Anesthesia Evaluation ---
- Post Anesthesia Evaluation Patient Participated: Yes Airway Patent: Yes Stable Respiratory Function: Yes Nausea/Vomiting: No Temp > 96.8F: Yes Pain Manageable: Yes Adequeate Hydration: Yes Anesthesia Complications: No Block Receding Appropriately: Yes Patient on Ventilator: No
--- NOTE | 2020-09-13 20:54 | Event Note ---
Date: 09/13/20 Pt with elevated blood pressures prior to delivery and in recovery with hypotension follwing meds to bring down heart rate and blood pressure. Will hold magnesium at this time and monitor pt closely. No bleeding note on perineum and UPO is normal. Will con't with fluids and closely monitor for now.
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
[2020-09-13] MEDS ORDERED: LOPERAMIDE 2 MG CAP PO PRN (22:33)
[2020-09-14] MEDS: GENTAMICIN/NS 120MG/100ML 120 MG/100 ML BAG IV SCH ×2 (01:54→11:10)
[2020-09-14] MEDS: KETOROLAC 30 MG/1 ML INJ IV PRN ×2 (03:42→16:34)
[2020-09-14] MEDS: AMPICILLIN/NS 2 GM/100 ML 2 GM/100 ML BAG IV SCH ×2 (03:56→10:15)
--- NOTE | 2020-09-14 05:06 | Event Note ---
Date: 09/14/20 Pt currently is Afebrile and vitals are stable with resolution of tachycardia and hypotension. Will allow to the floor at this time.
[2020-09-14] MEDS: MORPHINE 2 MG/1 ML INJ IV PRN ×3 (09:17→18:15)
[2020-09-14 14:04] LABS: Hematocrit 36.7 % (30.3-42.9); Hemoglobin 12.6 gm/dl (10.1-14.3)
--- NOTE | 2020-09-14 18:45 | Progress Note ---
Assessment and Plan - Patient Problems (1) No care in current Onset Date: ~09/13/20 Current Visit: Yes Status: Acute Plan to address problem: Case management ordered and has seen patient. (2) with gestation of unknown duration Onset Date: ~09/13/20 Current Visit: Yes Status: Resolved (3) Previous section Onset Date: ~09/13/20 Current Visit: Yes Status: Acute (4) Twin gestation with unknown number of placentas and amniotic sacs Onset Date: ~09/13/20 Current Visit: Yes Status: Resolved Qualifiers: Trimester: third trimester Qualified Code(s): O30.003 - Twin , unspecified number of placenta and unspecified number of amniotic sacs, third trimester (5) IUFD at 20 weeks or more of gestation Onset Date: ~09/13/20 Current Visit: Yes Status: Resolved Plan to address problem: die try out worker stamping to follow up with patient after discharge to make burial arrangement for babies. (6) Chorioamnionitis Onset Date: ~09/13/20 Current Visit: Yes Status: Acute Qualifiers: Trimester: unspecified trimester Plan to address problem: Patient has received doses of Amp, gent, and clinda. Will continue with antibiotics 24 hours post delivery. Will monitor temperature. Subjective - Subjective Date of service: 09/14/20 (Pt states doing well.) Principal diagnosis: s/p rpt , IUFD twins, no care Interval history: Pt presented to triage with c/o ctxs and brown liquid coming out of her vagina. States that she has been getting care in [facility]. Does not remember name of OBGYN or practice name. States was given EDC 09/18/2020 based off her LMP which makes her 39.2 wks gestation. States that she never received an ultrasound during and her LMP is actually unknown. " My last period was before I found out I was ." Per pt she has not been seen by this OBGYN for the last 2 months. She is a with X 2 in 2004 and 2018 for unknown causes. She has also had an appendectomy and cholecystectomy. Remote history of cHTN 3-4 years ago and was last on medication 3-4 years ago. Denies any other medical/surgical, OB, [employer]RE REPAIRMAN history. Denies drug use. Patient reports: appetite normal, voiding normally, pain well controlled, ambulating normally : doing well Objective - Vital Signs Latest vital signs: Vital Signs Temp Pulse Resp BP BP Pulse Ox 09/14/20 16:08 97.7 F 83 20 135/77 97 09/14/20 12:27 97.9 F 92 H 20 116/67 95 09/14/20 09:30 97.6 F 61 16 125/66 100 09/14/20 08:52 79 83/46 09/14/20 08:51 80 87 09/14/20 08:50 80 199/113 87 09/14/20 08:49 79 115/75 09/14/20 08:03 108/68 09/14/20 05:30 70 131/65 97 09/14/20 05:00 82 116/59 95 09/14/20 04:30 89 116/68 97 09/14/20 04:00 89 117/65 99 09/14/20 03:30 88 120/70 98 09/14/20 03:00 86 109/61 97 09/14/20 02:31 81 99/59 99 09/14/20 02:00 100 H 96/55 98 09/14/20 01:31 98 H 106/59 97 09/14/20 01:01 97 H 22 98 09/14/20 01:00 97.3 F L 102 H 100/58 98 09/14/20 00:45 96 H 97 09/13/20 23:20 97.5 F L 106 H 22 92/53 97 09/13/20 23:14 108 H 98 09/13/20 23:10 111 H 104/60 99 09/13/20 23:00 107 H 104/60 98 09/13/20 22:45 110 H 105/56 98 09/13/20 22:30 112 H 98 09/13/20 22:16 110 H 109/59 97 09/13/20 22:01 97/40 97 09/13/20 21:45 111 H 73/43 96 09/13/20 21:34 111 H 81/43 97 09/13/20 21:32 118 H 97 09/13/20 21:15 98.6 F 116 H 23 85/49 98 09/13/20 21:01 113 H 25 H 95/50 99 09/13/20 20:47 114 H 21 102/48 98 09/13/20 20:31 97 H 23 163/84 09/13/20 20:26 67 26 H 159/87 97 09/13/20 20:15 110 H 22 83/44 97 09/13/20 20:00 115 H 22 72/42 97 09/13/20 19:58 121 H 27 H 75/41 97 09/13/20 19:56 97.8 F 114 H 22 74/31 97 Intake and Output 09/14/20 09/14/20 09/14/20 06:59 14:59 22:59 Intake Total 250 50 900 Output Total 500 400 Balance 250 -450 500 Intake: IV 250 50 AMPICILLIN/NS 2 GM/100 ML 100 2 gm In 100 ml @ 100 mls /hr IV Q6H PHILLY Rx#: [id number] CLEOCIN 900 MG/50 mL 900 50 mg In 50 ml @ 100 mls/hr IV Q8H PHILLY Rx#:[id number] CLEOCIN 900 MG/50 mL 900 50 mg In 50 ml @ 100 mls/hr IV Q8H PHILLY Rx#:[id number] GENTAMICIN/NS 120MG/100ML 100 120 mg In 100 ml @ 200 mls/hr IV Q8H PHILLY Rx#: [id number] Oral 660 Intake, Free Water 240 Output: Urine 500 400 Indwelling Catheter 500 Void 400 Other: Total, Intake Amount 660 Total, Output Amount 500 400 # Voids Void 1 - Exam Narrative Exam: Last elevated temperature was on 09/13 @ 1642 ( 101.8). Temperature ranges for this shift have been 97.6-97.9. Also of note, there is a small amount of blood noted on the dressing. Pt states that she thinks that this is vaginal bleeding from when she was walked from one room to another. Will continue to monitor bleeding on dressing. Breasts: Present: deferred Cardiovascular: Present: Regular rate Lungs: Present: Normal air movement Abdomen: Present: normal appearance, soft Vulva: both: normal Uterus: Present: normal Extremities: Present: normal Incision: Present: normal, intact, other (Small amount of old bleeding seen. Pt states that she believes it was from walking to her new room. )
[2020-09-14] MEDS: HYDROcodone/ACETAMINOPHEN 5-325 MG TAB PO PRN (23:22)
[2020-09-14] MEDS ORDERED: diphenhydrAMINE 25 MG CAP PO PRN (23:54)
[2020-09-15] MEDS ORDERED: medroxyPROGESTERone ACETATE 150 MG/ML SYRINGE IM ONE ×2 (06:46→12:44)
--- NOTE | 2020-09-15 07:11 | Discharge Summary ---
Providers - Providers Date of Admission: 09/13/20 09:55 Date of discharge: 09/15/20 (pt asking for d/c today if possible) Attending physician: JACKLYN WESTON 09/13/20 14:19 Consult to Case Management [CONS] Routine Services Needed at Discharge: Other Notified:: YES Was contact made?: Yes If yes, spoke with:: CHRISSY Comment:: PAULA Additional Physician Instructions: Positive UDS for marijuana and amphetamines. No care, twins, IUFD. Primary care physician: [employer] Hospitalization Reason for admission: active labor, IUFD, rupture of membranes, IUP at term, other (no care) Procedure: repeat low transverse Episiotomy: none Laceration: none Incision: normal, dry, intact, dressed (to be removed this AM) complications: none Discharge diagnosis: IUP at term delivered, intrapartum demise Maury baby: twins (one male one female) Hospital course: uncomplicated repeat section IUFD twin gestation; No care; Drug use by patient Pt A&O X 3 Desires d/c today if possible. VSS FF below umb Lochia small Dressing to be removed this AM D&I H&H No s/sx of anemia Stable s/ repeat c/s Demise twins P: continue pathway If pt is stable later today will allow d/c Condition at discharge: Good Disposition: DC-01 TO HOME OR SELFCARE - Discharge Diagnoses (1) delivery delivered Status: Acute Comment: Follow up one week postop care Plan - Provider Discharge Summary Activity: routine, no sex for 6 weeks, no heavy lifting 4 weeks, no strenuous exercise Diet: routine Instructions: routine Additional instructions: [] Smoking cessation referral if applicable(refer to patient education folder for contact #) [] Refer to [facility] Booklet Call your doctor immediately for: * Fever > 100.5 * Heavy vaginal bleeding ( >1 pad per hour) * Severe persistent headache * Shortness of breath * Reddened, hot, painful area to leg or breast * Drainage or odor from incision. * Keep incision clean and dry at all times and follow doctor's instructions regarding bathing/showering - Follow up plan Follow up: PRIMARY CARE, [Primary Care Provider] - 7 Days LEONARD,ROSINA, CNM [Advanced Practice Nurse] - 7 Days (You should call your OB office to schedule a postoperative visit in 1 week. If you are still in [place] please call [phone] to schedule with AJAY. Take medications as prescribed. You will be given Depo around time of discharge.)
[2020-09-15] MEDS: HYDROcodone/ACETAMINOPHEN 5-325 MG TAB PO PRN ×2 (08:01→12:13)
[2020-09-15] MEDS: IBUPROFEN 800 MG TAB PO PRN ×2 (12:10→22:16)
--- NOTE | 2020-09-15 13:00 | Event Note ---
Date: 09/15/20 (BP trending up will get PreE labs) last 2 BP 150/80 Ordered PreE labs with urine Will hold d/c until tomorrow, start Labetalol [address] Bliss aware
[2020-09-15 16:25] LABS: Bacteria,Urine 1+ /HPF (Negative); Bilirubin,Urine NEG (Negative); Blood,Urine MOD (Negative); Color,Urine Yellow (Yellow); Mucus,Urine FEW /HPF; Urobilinogen,Urine < 2.0 mg/dL (<2.0)
[2020-09-15 16:30] LABS: RBC,Urine > 182.0 /HPF (0.0-6.0)
[2020-09-15 16:47] LABS: Hematocrit 33.8 % (30.3-42.9); Hemoglobin 11.4 gm/dl (10.1-14.3); Mean Corpuscular HGB Conc 34 % (30-34); Mean Corpuscular Volume 86 fl (79-97); Platelet Count 280 K/mm3 (140-440); Red Blood Count 3.93 M/mm3 (3.65-5.03)
[2020-09-15 17:07] LABS: Alanine Aminotransferase 8 units/L (7-56); Uric Acid 8.9 mg/dL (3.5-7.6)
[2020-09-15] MEDS ORDERED: HYDROcodone/ACETAMINOPHEN 5-325 MG TAB PO ONE (18:00)
[2020-09-16] MEDS: IBUPROFEN 800 MG TAB PO PRN (05:29)
--- NOTE | 2020-09-16 09:41 | Event Note ---
Date: 09/16/20 reviewed pt's status with Dr. ivis MD states since labs are normal and pt is asymptomatic, she may be d'c'd with instructions to f/u 1 week. Will continue with labetalol.
[2020-09-16] MEDS: HYDROcodone/ACETAMINOPHEN 5-325 MG TAB PO PRN (10:02)
[2020-09-16 12:26] VITALS: BP 148/75
== END 2020-09-16 14:15 | disposition home or self-care (01) | DRG 765 ==
LOC: TRG 08:40 → APU 08:42 → TRG 09:54 → APU 09:55 → LD 22:36 → OB 09-14 08:58
PROVIDERS: ADMIT Obstetrics & Gynecology; ATTEND Obstetrics & Gynecology
PROC: 10D00Z1 Extraction of Products of Conception, Low, Open Approach (ICD-10-PCS; principal; 2020-09-13)
PROC: 3E0234Z Introduction of Serum, Toxoid and Vaccine into Muscle, Percutaneous Approach (ICD-10-PCS; 2020-09-16)
DX: O36.4XX1 Maternal care for intrauterine death, fetus 1 (principal); O41.1231 Chorioamnionitis, third trimester, fetus 1; O41.12 Chorioamnionitis; O36.4XX2 Maternal care for intrauterine death, fetus 2; O30.003 Twin pregnancy, unspecified number of placenta and unspecified number of amniotic sacs, third trimester; O10.02 Pre-existing essential hypertension complicating childbirth; O26.893 Other specified pregnancy related conditions, third trimester; F15.20 Other stimulant dependence, uncomplicated; Z37.4 Twins, both stillborn; Z3A.39 39 weeks gestation of pregnancy; Z90.49 Acquired absence of other specified parts of digestive tract; Z67.21 Type B blood, Rh negative
CPT/HCPCS: 36415; 76815; 80307; 81001; 82565; 83615; 84450; 84460; 84550; 85007; 85014; 85018; 85025; 85027; 85461; 86592; 86706; 86803; 86850; 86900; 86901; 87086; 87806; 88307; G0378; C1765; J0290; J1050; J1580; J1885; J2270; J2405; J2590; J2765; J2790; J3010; J3490; J7120